=== PATIENT | female | born 1990 | race Caucasian/White ===

== ENCOUNTER 2019-09-29 10:00 | Inpatient (IN) ==
[2019-09-29] MEDS ORDERED: Naloxone 0.4 MG/ML INJ IVP PRN (10:22)
[2019-09-29] MEDS ORDERED: Famotidine 20 MG/2 ML VIAL IVP PRN (10:22)
[2019-09-29] MEDS ORDERED: *HR* FentaNYL (PF) 100 MCG/2 ML VIAL IVP PRN (10:22)
[2019-09-29] MEDS ORDERED: Metoclopramide 10 MG/2 ML VIAL IVP PRN (10:22)
[2019-09-29] MEDS ORDERED: miSOPROStoL 25 MCG TABLET VG PRN (11:12)
[2019-09-29] MEDS ORDERED: Oxytocin 20 units/ LR 1000 mL 20 UNIT/1,000 ML BAG IVC SCH ×2 (11:15→20:14)
[2019-09-29 11:29] LABS: Basophils % 0.3 %; Eosinophils % 0.3 %; Hematocrit 35.9 % (35.3-44.9); Hemoglobin 11.8 g/dL (11.5-15.4); Immature Granulocytes % 0.5 % (0-4); Lymphocytes # 1.2 K/mcL (0.6-4.6); Lymphocytes % 18.1 %; Mean Corpuscular HGB Conc 32.9 g/dL (31.6-35.5); Mean Corpuscular Hemoglobin 29.8 pg (28.0-33.3); Mean Corpuscular Volume 90.7 fL (83.0-100.0); Monocytes # 0.4 K/mcL (0.0-1.3); Monocytes % 6.9 %; Neutrophils # 4.7 K/mcL (1.6-8.9); Platelet Count 118 K/mcL (140-400); Red Blood Count 3.96 M/mcL (3.82-4.97); Segmented Neutrophils % 73.9 %; White Blood Count 6.3 K/mcL (4.3-11.1)
[2019-09-29] MEDS: Ringers Solution, Lactated 1,000 ML IVC SCH ×2 (11:31→16:10)
[2019-09-29 11:39] LABS: Amphetamine Screen,Urine Negative ng/mL (Cutoff=1000); Barbiturate Screen,Urine Negative ng/mL (Cutoff=200); Benzodiazepines Screen,Urine Negative ng/mL (Cutoff=200); Cannabinoid Screen,Urine Negative ng/mL (Cutoff = 50); Cocaine Screen,Urine Negative ng/mL (Cutoff= 300); Opiate Screen,Urine Negative ng/mL (Cutoff=300); Phencyclidine Screen,Urine Negative ng/mL (Cutoff=25)
[2019-09-29] MEDS ORDERED: *HR* Promethazine 25 MG/ML VIAL IVP ONE (11:55)
[2019-09-29] MEDS ORDERED: EPHEDrine 50 MG/ML VIAL IVP PRN (12:19)
[2019-09-29] MEDS ORDERED: Epidural Premix (fent/bupiv) 110 ML EP SCH (12:30)
[2019-09-29] MEDS ORDERED: Acetaminophen 325 MG TABLET PO ONE (13:43)
[2019-09-29] MEDS ORDERED: *HR* FentaNYL (PF) 100 MCG/2 ML VIAL ONE (15:45)
[2019-09-29] MEDS ORDERED: Ropivacaine/PF 0.2% 20 ML VIAL ONE (15:45)
[2019-09-29] MEDS ORDERED: Ondansetron 4 MG/2 ML VIAL IVP ONE (19:12)
[2019-09-29] MEDS ORDERED: Lanolin 7 G OINT...G. TP PRN (20:14)
[2019-09-29] MEDS ORDERED: Benzocaine/Menthol 56 GM AEROSOL SPRAY TP PRN (20:14)
[2019-09-29] MEDS ORDERED: Acetaminophen 325 MG TABLET PO PRN (20:14)
[2019-09-29] MEDS: Ibuprofen 600 MG TABLET PO PRN (21:50)
[2019-09-30 08:16] VITALS: BP 104/70
[2019-09-30] MEDS: Ibuprofen 600 MG TABLET PO PRN ×2 (08:27→15:15)
[2019-09-30] MEDS ORDERED: Prenatal Vit/FA 1 EACH TABLET PO SCH (09:00)
== END 2019-09-30 15:45 | disposition home or self-care (01) | DRG 807 ==
LOC: 1NENULAB 10:13 → 1NENUOBS 20:26
PROVIDERS: ADMIT Obstetrics & Gynecology; ATTEND Obstetrics & Gynecology

== ENCOUNTER 2021-04-13 08:00 | Inpatient (IN) ==
[2021-04-13 09:19] LABS: Influenza A PCR Negative (Negative); Influenza B PCR Negative (Negative); Resp. Syncytial Virus PCR Negative (Negative)
[2021-04-13 09:21] LABS: SARS-CoV-2 by PCR (In House) Negative (Negative)
[2021-04-13] MEDS ORDERED: *HR* Nalbuphine 10 MG/ML AMPUL IV PRN (09:42)
[2021-04-13] MEDS ORDERED: Azithromycin 500 MG in 0.9 % Sodium Chloride 250 ML IVPB PRN (09:42)
[2021-04-13] MEDS ORDERED: miSOPROStoL 25 MCG TABLET VG PRN (09:42)
[2021-04-13] MEDS ORDERED: Famotidine 20 MG/2 ML VIAL IVP PRN (09:42)
[2021-04-13] MEDS ORDERED: Metoclopramide 10 MG/2 ML VIAL IVP PRN (09:42)
[2021-04-13] MEDS ORDERED: Naloxone 0.4 MG/ML INJ IVP PRN (09:42)
[2021-04-13] MEDS ORDERED: Ondansetron 4 MG/2 ML VIAL IVP PRN (09:42)
[2021-04-13] MEDS ORDERED: Ringers Solution, Lactated 1,000 ML IVC SCH (09:45)
[2021-04-13] MEDS ORDERED: Ringers Solution, Lactated 1,000 ML ONE (09:51)
[2021-04-13] MEDS ORDERED: EPHEDrine 50 MG/ML VIAL IVP PRN (10:16)
[2021-04-13] MEDS ORDERED: Ropivacaine/PF 0.2% 20 ML VIAL EP ONE (10:16)
[2021-04-13] MEDS ORDERED: *HR* FentaNYL (PF) 100 MCG/2 ML VIAL EP ONE (10:16)
[2021-04-13 10:28] LABS: Basophils % 0.5 %; Eosinophils % 0.3 %; Hematocrit 34.1 % (35.3-44.9); Hemoglobin 11.5 g/dL (11.5-15.4); Immature Granulocytes % 0.5 % (0-4); Lymphocytes # 1.3 K/mcL (0.6-4.6); Lymphocytes % 20.8 %; Mean Corpuscular HGB Conc 33.7 g/dL (31.6-35.5); Mean Corpuscular Hemoglobin 29.6 pg (28.0-33.3); Mean Corpuscular Volume 87.7 fL (83.0-100.0); Mean Platelet Volume 11.3 fL (9.4-12.4); Monocytes # 0.5 K/mcL (0.0-1.3); Monocytes % 8.2 %; Neutrophils # 4.5 K/mcL (1.6-8.9); Platelet Count 136 K/mcL (140-400); Red Blood Count 3.89 M/mcL (3.82-4.97); Red Cell Distribution Width 13.9 % (11.5-14.5); Segmented Neutrophils % 69.7 %; White Blood Count 6.5 K/mcL (4.3-11.1)
[2021-04-13] MEDS ORDERED: Epidural Premix (fent/bupiv) 110 ML EP SCH (10:30)
[2021-04-13 12:29] LABS: Amphetamine Screen,Urine Negative ng/mL (Cutoff=1000); Barbiturate Screen,Urine Positive ng/mL (Cutoff=200); Benzodiazepines Screen,Urine Negative ng/mL (Cutoff=200); Cannabinoid Screen,Urine Negative ng/mL (Cutoff = 50); Cocaine Screen,Urine Negative ng/mL (Cutoff= 300); Opiate Screen,Urine Negative ng/mL (Cutoff=300); Phencyclidine Screen,Urine Negative ng/mL (Cutoff=25)
[2021-04-13] MEDS ORDERED: Oxytocin 20 units/ LR 1000 mL 20 UNIT/1,000 ML BAG IVC ONE ×3 (15:26→19:42)
[2021-04-13] MEDS ORDERED: Acetaminophen 325 MG TABLET PO ONE (16:12)
[2021-04-13] MEDS ORDERED: Lidocaine 1% 20 ML MDV ONE (17:24)
[2021-04-13] MEDS ORDERED: Ondansetron ODT 4 MG TAB.RAPDIS SL PRN (20:12)
[2021-04-13] MEDS ORDERED: Lanolin 7 G OINT...G. TP PRN (20:12)
[2021-04-13] MEDS ORDERED: Benzocaine/Menthol 56 GM AEROSOL SPRAY TP PRN (20:12)
[2021-04-13] MEDS ORDERED: Oxytocin 20 units/ LR 1000 mL 20 UNIT/1,000 ML BAG IVC SCH (20:12)
[2021-04-13] MEDS: Ibuprofen 600 MG TABLET PO SCH (20:45)
[2021-04-13] MEDS: Acetaminophen 325 MG TABLET PO SCH (22:44)
[2021-04-14] MEDS: Ibuprofen 600 MG TABLET PO SCH ×2 (03:52→09:24)
[2021-04-14 05:17] LABS: Basophils % 0.4 %; Eosinophils % 0.3 %; Hematocrit 34.7 % (35.3-44.9); Hemoglobin 11.3 g/dL (11.5-15.4); Immature Granulocytes % 0.4 % (0-4); Lymphocytes # 1.5 K/mcL (0.6-4.6); Lymphocytes % 16.9 %; Mean Corpuscular HGB Conc 32.6 g/dL (31.6-35.5); Mean Corpuscular Hemoglobin 28.8 pg (28.0-33.3); Mean Corpuscular Volume 88.5 fL (83.0-100.0); Mean Platelet Volume 11.6 fL (9.4-12.4); Monocytes # 0.8 K/mcL (0.0-1.3); Monocytes % 8.6 %; Neutrophils # 6.6 K/mcL (1.6-8.9); Platelet Count 113 K/mcL (140-400); Red Blood Count 3.92 M/mcL (3.82-4.97); Red Cell Distribution Width 13.9 % (11.5-14.5); Segmented Neutrophils % 73.4 %
[2021-04-14] MEDS: Acetaminophen 325 MG TABLET PO SCH ×2 (06:37→12:52)
[2021-04-14] MEDS ORDERED: Prenatal Vit/FA 1 EACH TABLET PO SCH (09:00)
[2021-04-14 16:26] VITALS: PULSE 76
[2021-04-14 16:27] VITALS: BP 130/93; TEMP 97.9; O2SAT 96
== END 2021-04-14 18:10 | disposition home or self-care (01) | DRG 806 ==
LOC: 1NENULAB 08:14 → 1NENUOBS 20:10
PROVIDERS: ADMIT Obstetrics & Gynecology; ATTEND Obstetrics & Gynecology